=== PATIENT | male | born 1940 | race Caucasian/White ===

== ENCOUNTER 2016-11-06 06:00 | Day surgery (SDC) | payer MEDICARE, MEDICAID ==
[2016-11-06] MEDS ORDERED: LABETALOL HCL 100 MG/20 ML VIAL MC ONE (06:01)
[2016-11-06] MEDS ORDERED: CIPROFLOXACIN 0.3% OPHT DROP 2.5 ML BOTTLE ONE (06:23)
[2016-11-06] MEDS ORDERED: FLURBIPROFEN 0.03% OPHT DROP 2.5 ML BOTTLE ONE (06:23)
[2016-11-06] MEDS ORDERED: TROPICAMIDE 1% OPHT DROP 3 ML BOTTLE ONE (06:24)
[2016-11-06] MEDS ORDERED: PHENYLEPHRINE 2.5% OPHT DROP 2 ML BOTTLE ONE (06:24)
[2016-11-06] MEDS ORDERED: CYCLOPENTOLATE 1% OPHT DROP 2 ML BOTTLE ONE (06:24)
[2016-11-06] MEDS ORDERED: BALANCED SALT IRRIG SOLN COMB1 500 ML, VANCOMYCIN FOR BSS PLUS 10 MG, GENTAMICIN SULFAT... IO ONE ×4 (07:00)
[2016-11-06] MEDS ORDERED: TIMOLOL MALEATE 0.5% OPHT DROP 5 ML BOTTLE ONE (07:34)
[2016-11-06] MEDS ORDERED: TETRACAINE HCL 0.5% OPHT DROP 2 ML BOTTLE ONE (07:34)
[2016-11-06] MEDS ORDERED: LIDOCAINE-MPF 2% 5 ML VIAL ONE (07:34)
[2016-11-06] MEDS ORDERED: EPINEPHRINE 1 MG/1 ML AMP ONE (07:34)
[2016-11-06] MEDS ORDERED: LIDOCAINE HCL-MPF 1% 5 ML VIAL ONE (07:34)
[2016-11-06] MEDS ORDERED: NEO/POLYMYX B/DEXAME OPHT OINT 3.5 GM TUBE ONE (07:34)
[2016-11-06] MEDS ORDERED: BUPIVACAINE PF 0.5% 30 ML VIAL ONE (07:35)
[2016-11-06] MEDS ORDERED: BALANCED SALT IRRIG SOLN COMB2 15 ML IRRIG.SOLN ONE (07:35)
[2016-11-06] MEDS ORDERED: HYALURONIDASE,OVINE 200 UNITS/ML VIAL ONE (07:35)
[2016-11-06] MEDS ORDERED: ACETYLCHOLINE CHLORIDE 1% OPHT 1 EA KIT ONE (07:35)
[2016-11-06] MEDS ORDERED: HYALURONATE SODIUM 8.5 MG/0.85 ML DISP.SYRIN ONE (07:36)
[2016-11-06] MEDS ORDERED: HYALURONATE SODIUM 12.8 MG/0.8 ML DISP.SYRIN ONE (07:36)
[2016-11-06] MEDS ORDERED: VANCOMYCIN FOR CATARACT SURGERY MC ONE ×2 (08:00)
[2016-11-06] MEDS ORDERED: FENTANYL CITRATE 100 MCG/2 ML AMPUL ONE (08:32)
[2016-11-06] MEDS ORDERED: BALANCED SALT IRRIG SOLN COMB1 500 ML ONE (09:01)
== END 2016-11-06 10:15 | disposition home or self-care (01) ==
LOC: DS 06:00
PROVIDERS: ATTEND Ophthalmology
DX: E11.36 Type 2 diabetes mellitus with diabetic cataract (principal); H26.9 Unspecified cataract; I10 Essential (primary) hypertension; E78.5 Hyperlipidemia, unspecified; M19.90 Unspecified osteoarthritis, unspecified site
CPT/HCPCS: 36415; 71010; 84132; A4663; J0171; J1580; J3010; J3370; J3471; J3490; J7030; J7321; V2632

== ENCOUNTER 2016-12-18 06:44 | Day surgery (SDC) | payer MEDICARE, MEDICAID ==
[~2016-12-18 06:44] MED LIST: BALANCED SALT IRRIG SOLN COMB1 500 ML, VANCOMYCIN FOR BSS PLUS 10 MG, GENTAMICIN SULFAT... IO ONE
[2016-12-18] MEDS ORDERED: DEXAMETHASONE SOD PHOSPHATE 4 MG INJ IV ONE (06:45)
[2016-12-18] MEDS ORDERED: hydrALAZINE HCL 20 MG/1 ML VIAL IM ONE (06:45)
[2016-12-18] MEDS ORDERED: ONDANSETRON 4 MG/2 ML VIAL IV ONE (06:45)
[2016-12-18] MEDS ORDERED: LORAZEPAM 0.5 MG TABLET ONE (06:59)
[2016-12-18] MEDS ORDERED: CIPROFLOXACIN 0.3% OPHT DROP 2.5 ML BOTTLE ONE (07:01)
[2016-12-18] MEDS ORDERED: CYCLOPENTOLATE 1% OPHT DROP 2 ML BOTTLE ONE (07:01)
[2016-12-18] MEDS ORDERED: TROPICAMIDE 1% OPHT DROP 3 ML BOTTLE ONE (07:01)
[2016-12-18] MEDS ORDERED: FLURBIPROFEN 0.03% OPHT DROP 2.5 ML BOTTLE ONE (07:01)
[2016-12-18] MEDS ORDERED: PHENYLEPHRINE 2.5% OPHT DROP 2 ML BOTTLE ONE (07:02)
[2016-12-18] MEDS ORDERED: TETRACAINE HCL 0.5% OPHT DROP 2 ML BOTTLE ONE (07:27)
[2016-12-18] MEDS ORDERED: NEO/POLYMYX B/DEXAME OPHT OINT 3.5 GM TUBE ONE (07:27)
[2016-12-18] MEDS ORDERED: LIDOCAINE HCL-MPF 1% 5 ML VIAL ONE (07:27)
[2016-12-18] MEDS ORDERED: EPINEPHRINE 1 MG/1 ML AMP ONE (07:27)
[2016-12-18] MEDS ORDERED: LIDOCAINE-MPF 2% 5 ML VIAL ONE (07:27)
[2016-12-18] MEDS ORDERED: TIMOLOL MALEATE 0.5% OPHT DROP 5 ML BOTTLE ONE (07:27)
[2016-12-18] MEDS ORDERED: BALANCED SALT IRRIG SOLN COMB2 15 ML IRRIG.SOLN ONE (07:27)
[2016-12-18] MEDS ORDERED: HYALURONIDASE,OVINE 200 UNITS/ML VIAL ONE (07:28)
[2016-12-18] MEDS ORDERED: ACETYLCHOLINE CHLORIDE 1% OPHT 1 EA KIT ONE (07:28)
[2016-12-18] MEDS ORDERED: HYALURONATE SODIUM 12.8 MG/0.8 ML DISP.SYRIN ONE (07:28)
[2016-12-18] MEDS ORDERED: HYALURONATE SODIUM 8.5 MG/0.85 ML DISP.SYRIN ONE (07:28)
[2016-12-18] MEDS ORDERED: BUPIVACAINE PF 0.5% 30 ML VIAL ONE (07:28)
[2016-12-18] MEDS ORDERED: BALANCED SALT IRRIG SOLN COMB1 500 ML ONE (07:29)
[2016-12-18] MEDS ORDERED: DEXTROSE 50% 50 ML DISP.SYRIN ONE (07:33)
[2016-12-18] MEDS ORDERED: BALANCED SALT IRRIG SOLN COMB1 500 ML, VANCOMYCIN FOR BSS PLUS 10 MG, GENTAMICIN SULFAT... IO ONE ×4 (08:00)
[2016-12-18] MEDS ORDERED: VANCOMYCIN FOR CATARACT SURGERY MC ONE ×4 (08:15)
[2016-12-18] MEDS ORDERED: FENTANYL CITRATE 100 MCG/2 ML AMPUL ONE (08:32)
== END 2016-12-18 10:15 | disposition home or self-care (01) ==
LOC: DS 06:44
PROVIDERS: ATTEND Ophthalmology
DX: H26.9 Unspecified cataract (principal); E11.9 Type 2 diabetes mellitus without complications; E78.5 Hyperlipidemia, unspecified; I10 Essential (primary) hypertension; G47.33 Obstructive sleep apnea (adult) (pediatric); C44.81 Basal cell carcinoma of overlapping sites of skin; Z87.891 Personal history of nicotine dependence
CPT/HCPCS: 66984; 82962 ×2; A4663; J0171 ×2; J0360; J1100; J1580; J2405; J3010; J3370 ×2; J3471; J3490 ×4; J7030; J7070; J7321 ×2; V2632